=== PATIENT | male | born 1940 | race Caucasian/White ===

== ENCOUNTER → 2020-08-20 | Outpatient (CLI) | payer MEDICARE ==
[~2020-08-20] MED LIST: AMLODIPINE BES2.5 MG PO; ARTHRITIS PAIN650 M2 PO; ASPIRIN EC325 MG PO; ASPIRIN81 MG PO; ELIQUIS2.5 MG PO; FUROSEMIDE20 MG PO; HYDROCODON-ACE1 EAC6 PO; IRON236 MG PO; LIPITOR10 MG PO; LISINOPRIL40 MG PO; MUCINEX600 MG PO; TOPROL XL25 MG PO; VITAMIN B-12250 MCG PO; VITAMIN D21250 MCG PO; ZOLOFT50 MG PO
[2020-08-20 10:33] LABS: BUN/CREATININE RATIO 13 (0-10)
[2020-08-20 10:47] LABS: HEMOGLOBIN 17.4 gm/dl (14.0-17.5); RED BLOOD COUNT 5.35 M/UL (4.20-5.50); WHITE BLOOD COUNT 8.7 K/UL (4.5-11.0)
== END ==
LOC: EDBD 08:40 → OPSV2 08:40
PROVIDERS: Orthopaedic Surgery
DX: Z01.818 Encounter for other preprocedural examination (principal); M17.12 Unilateral primary osteoarthritis, left knee; R00.1 Bradycardia, unspecified
CPT/HCPCS: 36415; 80048; 85025; 87081; 93005

== ENCOUNTER → 2020-09-01 | Outpatient (CLI) | payer MEDICARE ==
[2020-09-01 12:25] LABS: BUN/CREATININE RATIO 11 (0-10)
== END ==
LOC: EDBD 10:38 → LAB 10:38
PROVIDERS: Orthopaedic Surgery
DX: Z01.812 Encounter for preprocedural laboratory examination (principal); M17.12 Unilateral primary osteoarthritis, left knee; I10 Essential (primary) hypertension
CPT/HCPCS: 36415; 80048; 86850; 86900; 86901

== ENCOUNTER 2020-09-02 06:08 | Day surgery (SDC) | payer MEDICARE ==
[~2020-09-02] VITALS: Ht 175.3 cm; Wt 85.7 kg
[~2020-09-02 06:08] MED LIST changes: -ASPIRIN EC325 MG PO; -HYDROCODON-ACE1 EAC6 PO
[2020-09-02] MEDS ORDERED: ASPIRIN EC325 MG PO (09:00)
[2020-09-02] MEDS ORDERED: HYDROCODON-ACE1 EAC6 PO (09:00)
[2020-09-03 04:40] LABS: HEMOGLOBIN 14.4 gm/dl (14.0-17.5); RED BLOOD COUNT 4.51 M/UL (4.20-5.50); WHITE BLOOD COUNT 19.4 K/UL (4.5-11.0)
[2020-09-03 05:14] LABS: BUN/CREATININE RATIO 16 (0-10)
--- NOTE | 2020-09-03 14:21 | NUR ---
REPORT CALLED AT THIS TIME TO [facility]. SPOKE WITH CHA MENON
== END 2020-09-03 14:15 | disposition home or self-care (01) ==
LOC: EDBD 06:08 → OR 06:08 → M/S 15:32 → OR 09-03 14:15
PROVIDERS: Orthopaedic Surgery
PROC: 3E0T3BZ Introduction of Anesthetic Agent into Peripheral Nerves and Plexi, Percutaneous Approach (ICD-10-PCS; 2020-09-02)
PROC: 0SRD0J9 Replacement of Left Knee Joint with Synthetic Substitute, Cemented, Open Approach (ICD-10-PCS; 2020-09-02)
PROC: 3E0T3BZ Introduction of Anesthetic Agent into Peripheral Nerves and Plexi, Percutaneous Approach (ICD-10-PCS; principal; 2020-09-02 08:15)
DX: M17.12 Unilateral primary osteoarthritis, left knee (principal); I10 Essential (primary) hypertension; E78.5 Hyperlipidemia, unspecified; G47.30 Sleep apnea, unspecified; Z20.822 Contact with and (suspected) exposure to COVID-19; Z79.82 Long term (current) use of aspirin; Z79.899 Other long term (current) drug therapy; Z91.19 Patient's noncompliance with other medical treatment and regimen
CPT/HCPCS: 36415; 73560; 80048; 85027; 86850; 86900; 86901; 97110; 97110-GP-CQ; 97116-GP-CQ; 97162; 97165; 97535; C1776; J0171; J0592; J0690; J1100; J1200; J2370; J2400; J2704; J2795; J3370; J3475; J7120

== ENCOUNTER 2021-01-09 13:01 | Emergency (ER) | payer MEDICARE ==
[~2021-01-09 13:01] MED LIST changes: +ASPIRIN EC325 MG PO; +HYDROCODON-ACE1 EAC6 PO
[2021-01-09 14:18] LABS: HEMOGLOBIN 14.9 gm/dl (14.0-17.5); RED BLOOD COUNT 5.19 M/UL (4.20-5.50); WHITE BLOOD COUNT 10.4 K/UL (4.5-11.0)
[2021-01-09 14:36] LABS: BUN/CREATININE RATIO 16 (0-10)
== END 2021-01-09 17:34 | disposition home or self-care (01) ==
LOC: ER1 13:01
PROVIDERS: Physician Assistant
DX: I82.412 Acute embolism and thrombosis of left femoral vein (principal); E78.5 Hyperlipidemia, unspecified; I10 Essential (primary) hypertension; F41.9 Anxiety disorder, unspecified
CPT/HCPCS: 80053; 85025; 85610; 85730; 99284